=== PATIENT | male | born 2000 | race Caucasian/White ===

== ENCOUNTER 2023-10-19 21:53 | Inpatient (IN) | payer OTHER ==
[~2023-10-19 21:53] MED LIST: Iopamidol 370 76% 100 ML VIAL ONE
[2023-10-19] MEDS ORDERED: fentaNYL 50 mcg/mL 1 mL Vial ONE (22:07)
[2023-10-19 22:16] LABS: Hematocrit 43.6 % (42.0-52.0); Hemoglobin 15.2 g/dL (14.0-18.0); Manual Diff?? YES; Mean Corpuscular HGB CONC 34.9 g/dL (32.0-36.0); Mean Platelet Volume 9.7 fL (7.4-10.4); Platelet Count 334 10x3/uL (130-400); RBC Distribution Width 13.2 % (11.5-14.5); White Blood Cell (WBC) Count 20.5 10x3/uL (4.8-10.8)
[2023-10-19 22:18] LABS: Delete Auto Diff?? YES
[2023-10-19 22:37] LABS: Acetaminophen Less than 10 mcg/mL (10.0-30.0); Alcohol Less than 10.0 mg/dL (Less than 10); Salicylate Less than 8.0 mg/dL (15.0-30.0)
[2023-10-19 22:38] LABS: ALT (SGPT) 68 U/L (8-55); AST (SGOT) 80 U/L (5-34); Albumin 4.1 g/dL (3.5-5.0); Alkaline Phosphatase 78 U/L (40-110); Anion Gap 16 mmol/L (10-20); BUN (Urea Nitrogen) 16 mg/dL (8.9-20.6); Bilirubin, Total 0.5 mg/dL (0.2-1.2); Calc. Creatinine Clearance 0 mL/min (70-130); Calcium 8.9 mg/dL (7.8-10.44); Carbon Dioxide 19 mmol/L (22-29); Chloride 106 mmol/L (98-107); Estimated GFR 89; Globulin 2.6 g/dL (2.4-3.5); Glucose 105 mg/dL (70-105); Potassium 4.1 mmol/L (3.5-5.1); Protein, Total 6.7 g/dL (6.0-8.3); Sodium 137 mmol/L (136-145)
[2023-10-19] MEDS ORDERED: Morphine 4 MG/ML VIAL ONE (22:38)
[2023-10-19 22:41] LABS: Band 3 % (5-11); CellaVision Operator ID lab.abc; Lymphocytes 17 % (21-51); Monocytes 7 % (0-10); Neutrophil 63 % (42-75); Platelet Adequacy Comment Platelets Normal; RBC Morphology Within Normal Limits; Reactive Lymphocytes 11 % (0-10); Smudge Cells 4.9 %; Total Cell Count 102
[2023-10-19 22:44] LABS: INR-International Normal Ratio 1.1; PTT 25.2 sec (22.9-36.1); Prothrombin Time 14.1 sec (12.0-14.7)
[2023-10-19] MEDS ORDERED: Calcium Chloride 1 GM/10 ML Abboject SYRINGE ONE (22:52)
[2023-10-19] MEDS ORDERED: Tranexamic Acid 1,000 MG/10 ML VIAL ONE (22:52)
[2023-10-19] MEDS ORDERED: Ondansetron PF 4 MG/2 ML Vial ONE (22:56)
[2023-10-19] MEDS ORDERED: PROPOFOL 20 ML ONE (22:58)
[2023-10-19] MEDS ORDERED: Fentanyl 250 MCG/5 ML VIAL ONE (22:59)
[2023-10-19] MEDS ORDERED: Lidocaine 1% PF 5 ML VIAL ONE (23:01)
[2023-10-19] MEDS ORDERED: Sterile Water 10 ML ONE (23:03)
[2023-10-19] MEDS ORDERED: Vecuronium 10 MG VIAL ONE (23:03)
[2023-10-19] MEDS ORDERED: SUCCINYLCHOLINE/SOD CL,ISO/PF 200 MG/10 ML SYRINGE FS ONE (23:03)
[2023-10-19] MEDS ORDERED: Famotidine/PF 20 mg/2ml Vial ONE (23:54)
[2023-10-20] MEDS ORDERED: CEFAZOLIN 1 GM VIAL ONE (00:09)
[2023-10-20] MEDS ORDERED: Sterile Water 20 ML ONE (00:09)
[2023-10-20] MEDS ORDERED: Calcium Chloride 1 GM/10 ML Abboject SYRINGE ONE (00:27)
[2023-10-20] MEDS ORDERED: Dexamethasone 20 MG/5 ML VIAL ONE (00:58)
[2023-10-20] MEDS ORDERED: Vecuronium 10 MG VIAL ONE (01:22)
[2023-10-20] MEDS ORDERED: PHENYLEPHRINE-NS 100 MCG/ML 10 ML SYRINGE ONE (01:48)
[2023-10-20] MEDS ORDERED: Fentanyl CADD 100 ML ONE (02:11)
[2023-10-20] MEDS ORDERED: Ventilator Sedation Protocol 1 EACH FS SCH (02:15)
[2023-10-20] MEDS ORDERED: Dextrose 5% in Water 1,000 ML IV PRN (02:18)
[2023-10-20] MEDS ORDERED: Dextrose 50% Abboject 50 ML SYRINGE SLOW IVP PRN (02:18)
[2023-10-20] MEDS ORDERED: Morphine 4 MG/ML VIAL SLOW IVP PRN (02:18)
[2023-10-20] MEDS ORDERED: Glucagon 1 MG/ML KIT IM PRN (02:18)
[2023-10-20] MEDS ORDERED: Lorazepam 2 MG/ML VIAL SLOW IVP PRN (02:30)
[2023-10-20] MEDS ORDERED: Propofol 1,000 MG/100 ML VIAL IV PRN (02:30)
[2023-10-20] MEDS ORDERED: Fentanyl CADD 100 ML IV SCH (02:30)
[2023-10-20] MEDS ORDERED: Fentanyl BOLUS 250 ML IVPB PRN (02:30)
[2023-10-20] MEDS ORDERED: Morphine 2 MG/ML VIAL SLOW IVP PRN (02:30)
[2023-10-20] MEDS ORDERED: Propofol BOLUS 1,000 MG/100 ML VIAL IV PRN (02:30)
[2023-10-20 02:43] LABS: Base Excess (BEa) 0.1 mEq/L (-2.0 to +3.0); CO2 Tension 36.7 mmHg (35.0-45.0); Calcium, Ionized (arterial) 1.23 mmol/L (1.12-1.30); Carboxyhemoglobin (COHb) 0.7 gm% (0.0-3.0); Hematocrit-ABG 35 % (42.0-52.0); Hemoglobin (Hb) 11.8 g/dL (14.0-18.0); O2 Tension (PaO2), arterial 279.4 mmHg (80.0-100.0); Potassium - ABG Lab 4.87 mmol/L (3.70-5.30); pH, Arterial 7.434 (7.35-7.45)
[2023-10-20 02:44] LABS: Puncture Site LINE
[2023-10-20 02:45] LABS: ALV-art Gradient 102.525 mmHg (0-20)
[2023-10-20] MEDS ORDERED: TETANUS, DIPHTHERIA TOX,ADULT (TDVAX) 0.5 ML VIAL IM ONE (03:00)
[2023-10-20 04:01] LABS: #Monocytes 0.8 thou/uL (0.11-0.59); #Neutrophils 11.4 thou/uL (1.40-6.50); %Basophils 0.2 % (0.0-1.0); %Lymphocytes 6.6 % (21.0-51.0); %Neutrophils 86.6 % (42.0-75.0); Mean Corpuscular HGB CONC 34.8 g/dL (32.0-36.0); Mean Platelet Volume 9.9 fL (7.4-10.4); RBC Distribution Width 13.7 % (11.5-14.5); Red Blood Cell (RBC) Count 3.55 mill/uL (4.70-6.10); White Blood Cell (WBC) Count 13.1 10x3/uL (4.8-10.8)
[2023-10-20 04:10] LABS: Hematocrit 31.6 % (42.0-52.0); Platelet Count 121 10x3/uL (130-400)
[2023-10-20 04:22] LABS: Lactic Acid 1.3 mmol/L (0.5-2.2)
[2023-10-20 05:04] LABS: ALT (SGPT) 40 U/L (8-55); AST (SGOT) 62 U/L (5-34); Albumin 3.2 g/dL (3.5-5.0); Alkaline Phosphatase 55 U/L (40-110); Anion Gap 12 mmol/L (10-20); BUN (Urea Nitrogen) 16 mg/dL (8.9-20.6); Bilirubin, Total 1.4 mg/dL (0.2-1.2); Calc. Creatinine Clearance 121 mL/min (70-130); Calcium 8.7 mg/dL (7.8-10.44); Carbon Dioxide 22 mmol/L (22-29); Chloride 105 mmol/L (98-107); Estimated GFR 98; Globulin 2.3 g/dL (2.4-3.5); Glucose 169 mg/dL (70-105); Magnesium 1.7 mg/dL (1.6-2.6); Phosphorus 3.9 mg/dL (2.3-4.7); Potassium 4.4 mmol/L (3.5-5.1); Protein, Total 5.5 g/dL (6.0-8.3); Sodium 135 mmol/L (136-145)
[2023-10-20 07:39] LABS: Actual Bicarbonate (HCO3a) 23.5 mEq/L (22-28); Base Excess (BEa) 0.4 mEq/L (-2.0 to +3.0); CO2 Tension 33.1 mmHg (35.0-45.0); Calcium, Ionized (arterial) 1.12 mmol/L (1.12-1.30); Carboxyhemoglobin (COHb) 0.5 gm% (0.0-3.0); Hematocrit-ABG 34 % (42.0-52.0); Hemoglobin (Hb) 11.7 g/dL (14.0-18.0); O2 Tension (PaO2), arterial 191.3 mmHg (80.0-100.0); Potassium - ABG Lab 4.36 mmol/L (3.70-5.30)
[2023-10-20 07:42] LABS: ALV-art Gradient 52.525 mmHg (0-20); Puncture Site Arterial Line
[2023-10-20] MEDS ORDERED: DC Sedation Protocol FS ONE (09:51)
[2023-10-20] MEDS ORDERED: Cyclobenzaprine 10 MG TAB PO PRN (09:52)
[2023-10-20] MEDS ORDERED: Aluminum & Magnesium Hydroxide 60 ML, Lidocaine 2% Viscous Solution 30 ML, diphenhydrAM... SSW PRN (10:00)
[2023-10-20] MEDS: Morphine 4 MG/ML VIAL SLOW IVP PRN ×3 (10:21→20:38)
[2023-10-20] MEDS: Ondansetron PF 4 MG/2 ML Vial IVP PRN ×2 (10:21→15:30)
[2023-10-20] MEDS: Famotidine/PF 20 mg/2ml Vial SLOW IVP SCH ×2 (10:22→22:25)
[2023-10-20] MEDS: traMADol HCl 50 MG TAB PO SCH ×3 (10:42→22:25)
[2023-10-20] MEDS: Cyclobenzaprine 10 MG TAB PO PRN ×3 (10:43→19:23)
[2023-10-20] MEDS: Acetaminophen 500 MG TAB PO SCH ×3 (10:43→22:25)
[2023-10-20] MEDS: Sodium Chloride 0.9% 1,000 ML IV SCH ×2 (10:57→22:26)
[2023-10-21] MEDS: Morphine 4 MG/ML VIAL SLOW IVP PRN ×3 (01:00→20:09)
[2023-10-21] MEDS: Ondansetron PF 4 MG/2 ML Vial IVP PRN (01:00)
[2023-10-21] MEDS: traMADol HCl 50 MG TAB PO SCH ×2 (05:34→10:43)
[2023-10-21] MEDS: Acetaminophen 500 MG TAB PO SCH ×4 (05:34→20:08)
[2023-10-21] MEDS: Sodium Chloride 0.9% 1,000 ML IV SCH ×2 (05:59→18:36)
[2023-10-21] MEDS ORDERED: CEFAZOLIN 2 GM VIAL ONE (07:48)
[2023-10-21] MEDS ORDERED: Sodium Chloride 0.9% 100 ML ONE (07:48)
[2023-10-21] MEDS ORDERED: PROPOFOL 20 ML ONE (08:10)
[2023-10-21] MEDS ORDERED: Lidocaine 2% PF 5 ML VIAL ONE (08:10)
[2023-10-21] MEDS ORDERED: Rocuronium Bromide 10 MG/ML (10ML VIAL) ONE (08:10)
[2023-10-21] MEDS ORDERED: fentaNYL 50 mcg/mL 1 mL Vial ONE ×2 (08:11→09:46)
[2023-10-21] MEDS ORDERED: PHENYLEPHRINE-NS 100 MCG/ML 10 ML SYRINGE ONE (09:04)
[2023-10-21] MEDS ORDERED: NEOSTIGMINE 3 MG/3 ML SYR 3 MG/3 ML SYRINGE ONE (09:05)
[2023-10-21] MEDS ORDERED: Glycopyrrolate 0.2 MG/ML 5 ML SYRINGE ONE (09:05)
[2023-10-21] MEDS ORDERED: Ketorolac Tromethamine 30 MG (1 mL) VIAL ONE (09:31)
[2023-10-21] MEDS ORDERED: HYDROcodone/Acetaminophen 10/325 mg Tablet PO PRN (09:35)
[2023-10-21] MEDS ORDERED: Ondansetron HCl/PF 4 MG/2 ML Vial IVP PRN (09:44)
[2023-10-21] MEDS ORDERED: Promethazine HCl 25 MG/ML VIAL IM PRN (09:44)
[2023-10-21] MEDS ORDERED: PACU-Morphine 4MG/ML VIAL SLOW IVP PRN (09:44)
[2023-10-21] MEDS ORDERED: Communication Order-Pharmacy FS SCH (09:45)
[2023-10-21] MEDS ORDERED: Morphine 4 MG/ML VIAL ONE (09:47)
[2023-10-21] MEDS: Famotidine/PF 20 mg/2ml Vial SLOW IVP SCH ×2 (10:44→20:09)
[2023-10-21] MEDS: Ketorolac Tromethamine 30 MG (1 mL) VIAL IVP SCH ×2 (10:44→18:35)
[2023-10-21 12:41] LABS: #Monocytes 0.6 thou/uL (0.11-0.59); #Neutrophils 8.5 thou/uL (1.40-6.50); %Basophils 0.1 % (0.0-1.0); %Eosinophils 0.3 % (0.0-10.0); %Lymphocytes 8.1 % (21.0-51.0); %Monocytes 5.8 % (0.0-10.0); %Neutrophils 85.2 % (42.0-75.0); Hematocrit 29.2 % (42.0-52.0); Hemoglobin 9.7 g/dL (14.0-18.0); Mean Corpuscular HGB CONC 33.2 g/dL (32.0-36.0); Mean Corpuscular Hemoglobin 30.5 pg (27.0-31.0); Mean Corpuscular Volume 91.8 fl (78.0-98.0); Mean Platelet Volume 10.4 fL (7.4-10.4); Platelet Count 103 10x3/uL (130-400); RBC Distribution Width 14.4 % (11.5-14.5); Red Blood Cell (RBC) Count 3.18 mill/uL (4.70-6.10); White Blood Cell (WBC) Count 9.9 10x3/uL (4.8-10.8)
[2023-10-21 13:06] LABS: ALT (SGPT) 41 U/L (8-55); AST (SGOT) 83 U/L (5-34); Albumin 3.3 g/dL (3.5-5.0); Alkaline Phosphatase 48 U/L (40-110); Anion Gap 9 mmol/L (10-20); BUN (Urea Nitrogen) 12 mg/dL (8.9-20.6); Bilirubin, Total 0.8 mg/dL (0.2-1.2); Calc. Creatinine Clearance 161 mL/min (70-130); Calcium 7.6 mg/dL (7.8-10.44); Carbon Dioxide 24 mmol/L (22-29); Chloride 107 mmol/L (98-107); Estimated GFR 126; Globulin 2.2 g/dL (2.4-3.5); Glucose 117 mg/dL (70-105); Potassium 4.2 mmol/L (3.5-5.1); Protein, Total 5.5 g/dL (6.0-8.3); Sodium 136 mmol/L (136-145)
[2023-10-21] MEDS: CEFAZOLIN 2 GM in Sodium Chloride 0.9% 100 ML IVPB SCH (16:14)
[2023-10-21] MEDS: Cyclobenzaprine 10 MG TAB PO PRN (18:41)
[2023-10-21] MEDS: Aspirin 81 mg Enteric Coated Tablet PO SCH (20:08)
[2023-10-22] MEDS: CEFAZOLIN 2 GM in Sodium Chloride 0.9% 100 ML IVPB SCH (00:07)
[2023-10-22] MEDS: Ketorolac Tromethamine 30 MG (1 mL) VIAL IVP SCH ×4 (00:07→18:28)
[2023-10-22] MEDS: Acetaminophen 500 MG TAB PO SCH ×4 (05:02→20:59)
[2023-10-22] MEDS: Sodium Chloride 0.9% 1,000 ML IV SCH ×2 (05:03→13:30)
[2023-10-22 05:19] LABS: #Eosinphils 0.1 thou/uL (0.0-0.7); #Monocytes 1.1 thou/uL (0.11-0.59); #Neutrophils 8.1 thou/uL (1.40-6.50); %Basophils 0.1 % (0.0-1.0); %Eosinophils 0.4 % (0.0-10.0); %Lymphocytes 17.6 % (21.0-51.0); %Monocytes 9.8 % (0.0-10.0); %Neutrophils 71.6 % (42.0-75.0); Hematocrit 24.9 % (42.0-52.0); Hemoglobin 8.3 g/dL (14.0-18.0); Mean Corpuscular HGB CONC 33.3 g/dL (32.0-36.0); Mean Corpuscular Hemoglobin 30.7 pg (27.0-31.0); Mean Corpuscular Volume 92.2 fl (78.0-98.0); Mean Platelet Volume 10.5 fL (7.4-10.4); Platelet Count 124 10x3/uL (130-400); White Blood Cell (WBC) Count 11.3 10x3/uL (4.8-10.8)
[2023-10-22] MEDS: Famotidine/PF 20 mg/2ml Vial SLOW IVP SCH ×2 (09:06→21:00)
[2023-10-22] MEDS: Aspirin 81 mg Enteric Coated Tablet PO SCH ×2 (09:07→21:01)
[2023-10-22] MEDS: Morphine 4 MG/ML VIAL SLOW IVP PRN ×2 (13:27→21:00)
[2023-10-22] MEDS: Ondansetron PF 4 MG/2 ML Vial IVP PRN (13:33)
[2023-10-23] MEDS: Ketorolac Tromethamine 30 MG (1 mL) VIAL IVP SCH ×4 (00:40→17:59)
[2023-10-23] MEDS: Sodium Chloride 0.9% 1,000 ML IV SCH ×2 (00:41→09:20)
[2023-10-23] MEDS ORDERED: Polyethylene Glycol 3350 17 GM Packet PO PRN (04:43)
[2023-10-23] MEDS: Acetaminophen 500 MG TAB PO SCH ×4 (05:39→21:00)
[2023-10-23 06:14] LABS: #Eosinphils 0.3 thou/uL (0.0-0.7); #Monocytes 0.8 thou/uL (0.11-0.59); #Neutrophils 5.4 thou/uL (1.40-6.50); %Basophils 0.3 % (0.0-1.0); %Eosinophils 2.7 % (0.0-10.0); %Lymphocytes 30.5 % (21.0-51.0); %Monocytes 8.2 % (0.0-10.0); %Neutrophils 57.3 % (42.0-75.0); Hematocrit 26.5 % (42.0-52.0); Hemoglobin 8.7 g/dL (14.0-18.0); Mean Corpuscular HGB CONC 32.8 g/dL (32.0-36.0); Mean Corpuscular Hemoglobin 30.3 pg (27.0-31.0); Mean Corpuscular Volume 92.3 fl (78.0-98.0); Mean Platelet Volume 9.9 fL (7.4-10.4); Platelet Count 156 10x3/uL (130-400); RBC Distribution Width 13.7 % (11.5-14.5); Red Blood Cell (RBC) Count 2.87 mill/uL (4.70-6.10); White Blood Cell (WBC) Count 9.4 10x3/uL (4.8-10.8)
[2023-10-23 06:24] LABS: ALT (SGPT) 31 U/L (8-55); AST (SGOT) 52 U/L (5-34); Alkaline Phosphatase 47 U/L (40-110); Anion Gap 9 mmol/L (10-20); BUN (Urea Nitrogen) 10 mg/dL (8.9-20.6); Bilirubin, Total 0.8 mg/dL (0.2-1.2); Calc. Creatinine Clearance 166 mL/min (70-130); Calcium 7.8 mg/dL (7.8-10.44); Carbon Dioxide 24 mmol/L (22-29); Chloride 107 mmol/L (98-107); Estimated GFR 127; Globulin 2.1 g/dL (2.4-3.5); Glucose 88 mg/dL (70-105); Potassium 3.9 mmol/L (3.5-5.1); Protein, Total 5.1 g/dL (6.0-8.3); Sodium 136 mmol/L (136-145)
[2023-10-23] MEDS ORDERED: FLU VACC QS2023-24(6MOS UP)/PF 60 MCG/0.5 ML SYRINGE IM ONE (09:00)
[2023-10-23] MEDS: Senokot S 8.6-50 MG TAB PO SCH ×2 (09:20→20:58)
[2023-10-23] MEDS: Aspirin 81 mg Enteric Coated Tablet PO SCH ×2 (09:20→20:58)
[2023-10-23] MEDS: Famotidine/PF 20 mg/2ml Vial SLOW IVP SCH ×2 (09:20→20:58)
[2023-10-23] MEDS ORDERED: Ibuprofen 800 MG TAB PO SCH (09:45)
[2023-10-23] MEDS ORDERED: traMADol HCl 50 MG TAB PO PRN (09:46)
[2023-10-23] MEDS: traMADol HCl 50 MG TAB PO PRN ×2 (10:57→16:18)
[2023-10-23] MEDS: Enoxaparin 40 MG (0.4 mL) SYRINGE SC SCH (20:57)
[2023-10-24] MEDS: Ketorolac Tromethamine 30 MG (1 mL) VIAL IVP SCH ×6 (00:07→22:57)
[2023-10-24] MEDS: traMADol HCl 50 MG TAB PO PRN ×2 (00:08→09:16)
[2023-10-24 04:56] LABS: #Basophils 0.1 thou/uL (0.0-0.2); #Eosinphils 0.4 thou/uL (0.0-0.7); #Neutrophils 5.7 thou/uL (1.40-6.50); %Basophils 0.6 % (0.0-1.0); %Eosinophils 3.7 % (0.0-10.0); %Monocytes 9.8 % (0.0-10.0); %Neutrophils 56.1 % (42.0-75.0); Hematocrit 26.9 % (42.0-52.0); Mean Corpuscular HGB CONC 33.5 g/dL (32.0-36.0); Mean Corpuscular Hemoglobin 30.5 pg (27.0-31.0); Mean Corpuscular Volume 91.2 fl (78.0-98.0); Mean Platelet Volume 9.7 fL (7.4-10.4); Platelet Count 210 10x3/uL (130-400); RBC Distribution Width 13.4 % (11.5-14.5); Red Blood Cell (RBC) Count 2.95 mill/uL (4.70-6.10); White Blood Cell (WBC) Count 10.1 10x3/uL (4.8-10.8)
[2023-10-24] MEDS: Acetaminophen 500 MG TAB PO SCH ×4 (04:57→22:58)
[2023-10-24 05:28] LABS: ALT (SGPT) 32 U/L (8-55); AST (SGOT) 47 U/L (5-34); Albumin 3.2 g/dL (3.5-5.0); Alkaline Phosphatase 46 U/L (40-110); Anion Gap 8 mmol/L (10-20); BUN (Urea Nitrogen) 11 mg/dL (8.9-20.6); Bilirubin, Total 1.1 mg/dL (0.2-1.2); Calc. Creatinine Clearance 164 mL/min (70-130); Calcium 8.2 mg/dL (7.8-10.44); Carbon Dioxide 26 mmol/L (22-29); Chloride 106 mmol/L (98-107); Estimated GFR 126; Globulin 2.4 g/dL (2.4-3.5); Glucose 97 mg/dL (70-105); Potassium 3.9 mmol/L (3.5-5.1); Protein, Total 5.6 g/dL (6.0-8.3); Sodium 136 mmol/L (136-145)
[2023-10-24] MEDS: Famotidine/PF 20 mg/2ml Vial SLOW IVP SCH ×2 (09:15→22:57)
[2023-10-24] MEDS: Senokot S 8.6-50 MG TAB PO SCH ×2 (09:15→22:57)
[2023-10-24] MEDS: Aspirin 81 mg Enteric Coated Tablet PO SCH (09:15)
[2023-10-24] MEDS: Ondansetron PF 4 MG/2 ML Vial IVP PRN ×2 (09:37→17:11)
[2023-10-24 10:57] VITALS: BMI 36.1
[2023-10-24] MEDS: Enoxaparin 40 MG (0.4 mL) SYRINGE SC SCH (22:58)
[2023-10-25] MEDS: Acetaminophen 500 MG TAB PO SCH ×4 (05:46→21:10)
[2023-10-25] MEDS: Ketorolac Tromethamine 30 MG (1 mL) VIAL IVP SCH ×4 (05:47→23:42)
[2023-10-25 07:00] LABS: #Basophils 0.1 thou/uL (0.0-0.2); #Eosinphils 0.2 thou/uL (0.0-0.7); #Monocytes 1.4 thou/uL (0.11-0.59); #Neutrophils 5.9 thou/uL (1.40-6.50); %Basophils 0.6 % (0.0-1.0); %Eosinophils 2.4 % (0.0-10.0); %Lymphocytes 19.4 % (21.0-51.0); %Neutrophils 60.4 % (42.0-75.0); Hematocrit 30.1 % (42.0-52.0); Hemoglobin 9.9 g/dL (14.0-18.0); Mean Corpuscular HGB CONC 32.9 g/dL (32.0-36.0); Mean Corpuscular Hemoglobin 30.3 pg (27.0-31.0); Mean Platelet Volume 9.7 fL (7.4-10.4); Platelet Count 263 10x3/uL (130-400); RBC Distribution Width 13.9 % (11.5-14.5); Red Blood Cell (RBC) Count 3.27 mill/uL (4.70-6.10); White Blood Cell (WBC) Count 9.8 10x3/uL (4.8-10.8)
[2023-10-25 07:24] LABS: ALT (SGPT) 51 U/L (8-55); AST (SGOT) 52 U/L (5-34); Albumin 3.2 g/dL (3.5-5.0); Alkaline Phosphatase 60 U/L (40-110); Anion Gap 13 mmol/L (10-20); BUN (Urea Nitrogen) 10 mg/dL (8.9-20.6); Bilirubin, Total 1.2 mg/dL (0.2-1.2); Calc. Creatinine Clearance 169 mL/min (70-130); Calcium 8.2 mg/dL (7.8-10.44); Carbon Dioxide 23 mmol/L (22-29); Chloride 104 mmol/L (98-107); Estimated GFR 127; Globulin 2.7 g/dL (2.4-3.5); Glucose 87 mg/dL (70-105); Potassium 3.9 mmol/L (3.5-5.1); Protein, Total 5.9 g/dL (6.0-8.3); Sodium 136 mmol/L (136-145)
[2023-10-25] MEDS: Senokot S 8.6-50 MG TAB PO SCH ×2 (09:58→21:10)
[2023-10-25] MEDS: Famotidine/PF 20 mg/2ml Vial SLOW IVP SCH ×2 (10:00→21:10)
[2023-10-25] MEDS: traMADol HCl 50 MG TAB PO PRN (11:33)
[2023-10-25] MEDS: Enoxaparin 40 MG (0.4 mL) SYRINGE SC SCH (21:11)
[2023-10-25] MEDS: Cyclobenzaprine 10 MG TAB PO PRN (21:58)
[2023-10-26] MEDS: Acetaminophen 500 MG TAB PO SCH ×4 (05:20→22:58)
[2023-10-26] MEDS: Ketorolac Tromethamine 30 MG (1 mL) VIAL IVP SCH ×4 (05:20→23:00)
[2023-10-26] MEDS: traMADol HCl 50 MG TAB PO PRN (10:09)
[2023-10-26] MEDS: Senokot S 8.6-50 MG TAB PO SCH ×2 (10:09→21:27)
[2023-10-26] MEDS: Cyclobenzaprine 10 MG TAB PO PRN ×2 (10:09→21:29)
[2023-10-26] MEDS: Famotidine/PF 20 mg/2ml Vial SLOW IVP SCH ×2 (10:10→21:27)
[2023-10-26] MEDS: Enoxaparin 40 MG (0.4 mL) SYRINGE SC SCH (21:27)
[2023-10-27] MEDS: Acetaminophen 500 MG TAB PO SCH ×3 (04:57→15:49)
[2023-10-27] MEDS: Ketorolac Tromethamine 30 MG (1 mL) VIAL IVP SCH (05:00)
[2023-10-27] MEDS ORDERED: Lactulose 20 GM (30 mL) UDCUP PO SCH (07:45)
[2023-10-27] MEDS: Famotidine/PF 20 mg/2ml Vial SLOW IVP SCH (09:35)
[2023-10-27] MEDS: Senokot S 8.6-50 MG TAB PO SCH (09:41)
[2023-10-27] MEDS: traMADol HCl 50 MG TAB PO PRN ×2 (09:42→15:47)
[2023-10-27 20:02] VITALS: BP 157/80; TEMP 97.8
== END 2023-10-27 20:08 | DRG 956 ==
LOC: ERS 21:53 → SDC/OP 23:52 → CCU 10-20 02:18 → IMCU/EMU 10-20 19:41 → SJJU 10-21 17:43
PROVIDERS: ADMIT Surgery; ATTEND Surgery
PROC: 30233K1 Transfusion of Nonautologous Frozen Plasma into Peripheral Vein, Percutaneous Approach (ICD-10-PCS; 2023-10-19)
PROC: 30233J1 Transfusion of Nonautologous Serum Albumin into Peripheral Vein, Percutaneous Approach (ICD-10-PCS; 2023-10-19)
PROC: 30233N1 Transfusion of Nonautologous Red Blood Cells into Peripheral Vein, Percutaneous Approach (ICD-10-PCS; 2023-10-19)
PROC: 30233M1 Transfusion of Nonautologous Plasma Cryoprecipitate into Peripheral Vein, Percutaneous Approach (ICD-10-PCS; 2023-10-19)
PROC: 0WCG0ZZ Extirpation of Matter from Peritoneal Cavity, Open Approach (ICD-10-PCS; principal; 2023-10-20)
PROC: 0DQV0ZZ Repair Mesentery, Open Approach (ICD-10-PCS; 2023-10-20)
PROC: 0DC Gastrointestinal System, Extirpation (ICD-10-PCS; 2023-10-20)
PROC: 4A133R1 Monitoring of Arterial Saturation, Peripheral, Percutaneous Approach (ICD-10-PCS; 2023-10-20)
PROC: 3E033XZ Introduction of Vasopressor into Peripheral Vein, Percutaneous Approach (ICD-10-PCS; 2023-10-20)
PROC: 0BH17EZ Insertion of Endotracheal Airway into Trachea, Via Natural or Artificial Opening (ICD-10-PCS; 2023-10-20)
PROC: 5A1935Z Respiratory Ventilation, Less than 24 Consecutive Hours (ICD-10-PCS; 2023-10-20)
PROC: 0QS704Z Reposition Left Upper Femur with Internal Fixation Device, Open Approach (ICD-10-PCS; 2023-10-21)
DX: S36.892A Contusion of other intra-abdominal organs, initial encounter (principal); S72.142A Displaced intertrochanteric fracture of left femur, initial encounter for closed fracture; J96.00 Acute respiratory failure, unspecified whether with hypoxia or hypercapnia; S27.321A Contusion of lung, unilateral, initial encounter; S32.10XA Unspecified fracture of sacrum, initial encounter for closed fracture; S22.42XA Multiple fractures of ribs, left side, initial encounter for closed fracture; S32.592A Other specified fracture of left pubis, initial encounter for closed fracture; D62 Acute posthemorrhagic anemia; V29.99XA Rider (driver) (passenger) of other motorcycle injured in unspecified traffic accident, initial encounter
CPT/HCPCS: 36415; 36416; 36430; 70450; 71045; 71260; 72125; 72170; 74177; 80053; 80307; 82805; 83605; 83735; 84100; 85025; 85610; 85730; 86850; 86900; 86901; 94002; 96361; 96374; 96375; 99292; A4314; C1713; G0390; J0690; J1100; J1650; J1885; J2001; J2270; J2405; J2704; J3010; J3490; J7050; P9012; P9016; P9035; P9048; P9059; Q9967; S0028